=== PATIENT | female | born 1985 | race Two or more races ===

== ENCOUNTER 2018-07-04 16:18 | Inpatient (IN) | payer OTHER ==
[2016-08-24 14:25] VITALS: BMI 27.3
[2018-07-04] MEDS ORDERED: Oxytocin 30 UNIT 30 UNITS/500 ML BAG IV ONE ×2 (17:51→19:19)
[2018-07-04] MEDS ORDERED: Lactated Ringer's 1,000 ML IV SCH (18:00)
[2018-07-04 18:06] LABS: BASO % 0.1 % (0.0-2.0); EOS # 0.1 K/uL (0.0-0.7); EOS % 0.9 % (0.0-4.0); HEMOGLOBIN 10.7 g/dL (11.0-16.0); LYMPH # 2.4 K/uL (1.0-4.3); LYMPH % 16.9 % (20.0-40.0); MEAN CELL VOLUME 82.2 fL (81.0-99.0); MEAN CORPUSCULAR HEMOGLOBIN 27.8 pg (27.0-31.0); MEAN CORPUSCULAR HGB CONC 33.8 g/dL (33.0-37.0); MEAN PLATELET VOLUME 9.7 fL (7.2-11.7); MONO # 1.3 K/uL (0.0-0.8); NEUT # 10.4 K/uL (1.8-7.0); NEUT % 73.1 % (50.0-75.0); NRBC % 0.1 % (0.0-2.0); RBC 3.85 Mil/uL (3.80-5.20); RED CELL DISTRIBUTION WIDTH 14.9 % (11.5-14.5); WHITE BLOOD COUNT 14.3 K/uL (4.8-10.8)
[2018-07-04 18:14] LABS: SQUAMOUS EPITHIAL 2 /hpf (0-5); URINE BACTERIA OCC (<OCC); URINE BILIRUBIN NEGATIVE (NEGATIVE); URINE BLOOD 1+ (NEGATIVE); URINE CLARITY Clear (Clear); URINE COLOR Straw (YELLOW); URINE GLUCOSE (UA) NORMAL (Normal); URINE LEUKOCYTE ESTERASE TRACE Leu/uL (Negative); URINE PROTEIN NEGATIVE (NEGATIVE); URINE UROBILINOGEN NORMAL mg/dL (0.2-1.0)
[2018-07-04 18:22] LABS: ALB/GLOB RATIO 1.1 (1.0-2.1); ALBUMIN 3.7 g/dL (3.5-5.0); ALT/SGPT 16 U/L (9-52); AST/SGOT 17 U/L (14-36); BLOOD UREA NITROGEN 8 mg/dL (7-17); CALCIUM 9.4 mg/dl (8.6-10.4); GFR NON-AFRICAN AMERICAN > 60
[2018-07-04] MEDS ORDERED: Bupivacaine HCl/FentaNYL Cit 100 ML EPI ONE (18:43)
[2018-07-04 19:05] LABS: HEPATITIS B SURFACE AG Negative (NEGATIVE)
--- NOTE | 2018-07-04 19:44 | OBHP ---
Datetime: 07/04/2018 19:04 IP Adm Impression: Term, intrauterine ; Active labor; Intact Membranes IP Chief Complaint Other: Passed mucous plug IP Admit Plan: Admit to unit; Initiate labor augmentation protocol Admit Comment, IP Provider: This is a private patient of Dr. Leyda Thompson Patient initially seen and evaluated at approximately 1720 hours. 32 y.o. , LMP 10/12/17, ALIYAH 07/19/18, EGA 37w 6d, passed mucous plug approximately [address] Increasing strength of Ctx also 1200 hours; pain scale 4/10. (+) AFM; denies LOF, VB. c are: Dr. Thompson, as per patient, unremarkable P Ob: 2016, , male, 7 lb 4 oz, [facility]; no complications P FACTORY EXPERT: 14 x 28 x 5. Denies h/o abnormal Pap, myomata, ovarian cysts, STIs PMH: (?)thyroglossal cyst PSH: 2009, removal of thyroglossal cyst NKDA Meds: PNV - QD Soc Hx: denies tobacco, illicit drug or EtOH use. . Homemaker Fam Hx: Mother alive 60 - no med issues. Father alive 71 y.o. - DM P.E.: as above. WD in NAD. Awake, alert, oriented to time, person, place. Pleasant and cooperative Assessment: 32 y.o. , 37w 6d, in active labor. Per Dr. Thompson, GBS (-). Category 1 tracing. Cl inically stable Plan: 1) Admit 2) NPO 3) Admission labs 4) Continuous EFM 5) AROM 6) Pitocin 7) Epidural 8) Anticipate vaginal delivery - as per, and D/W, Dr. Thompson Addendum: 1800 hours - AROM performed: scant amount of clear amnionic fluid Pelvic Type - PN: Adequate Extremities - PN: Normal Abdomen - PN: Normal Back - PN: Normal Breast - PN: Not Done Lungs - PN: Normal Heart - PN: Normal Thyroid - PN: Abnormal Neurologic - PN: Normal HEENT - PN: Normal General - PN: Normal Weight - Estimated: 7 1/2 lbs Presentation-Admit: Vertex FHR - Baseline A Provider: 145 Membranes, Provider: Intact Contraction Comments Provider: 6-8 minutes Comments, ACOG Physical Exam: HEENT: healed scar on neck. no thyromegaly Abdomen: Gravid. Soft. Fundal height 38cm All other systems reviewed and are negative Gestation - Est Wks by US: 37w 6d IP Hx Assessment: record not currently available EGA AdmitDate IP: 37.6 IP Indication for Induction: Not Applicable IP Chief Complaint: Other NICHD Variability Prov Fetus A: Moderate 6-25bpm NICHD Accel Fetus A IP Provider: [id number] FHR Category Provider Fetus A: Category I NICHD Decel Fetus A IP Provider: None Dilatation, Provider: 6 Effacement, Provider: 60 Genitourinary Exam: Normal DTRs - PN: Normal
[2018-07-04] MEDS ORDERED: Oxycodone/Acetaminophen 5/325 mg Tab PO PRN ×2 (22:59)
--- NOTE | 2018-07-04 23:03 | OBDS ---
DELIVERY PERSONNEL Delivery Doctor: Guille Thompson MD Human Capital Consultant: Michell Herzog RN Anesthesiologist: Dr Cruz MATERNAL INFORMATION Delivery Anesthesia: Epidural Medications in Delivery: Pitocin 20 units IV Placenta Cultured: No Maternal Complications: None Provider Comments: pt was fully dilatd and pushing. atraumatic, spontanoeu delviery of head, no nuch al cord noted. aturmat, spontanoeu delivery of anterior followed by posteiro shoulder followd by deli verd by body. Both oral and nasal passages of raiza baby were bulb suctioned. ubmilcal cord clamed and cut. baby handed to mother on abdomen wt rn assistance. cord blood collected and sent x 2. Spotaneou delivery of intact placent with membrnae. fundus firm. second dgree perienal laceration noted adn re paired iwth 2-0 chormic. Good hemostias, no complciaiotn eb 300ml live male ifnat agpars 9,9 weight of 7lbs 3 ounces no complciaotns LABOR SUMMARY EDC: 07/19/2018 00:00 No. Babies in Womb: 1 Attempted: No Labor Anesthesia: Epidural LABOR INFORMATION Reason for Induction: Not Applicable Onset of Labor: 07/04/2018 16:00 Complete Dilatation: 07/04/2018 22:00 Oxytocin: Augmentation Group B Beta Strep: Negative Antibiotics # of Doses: 0 Antibiotics Time of Last Dose: 0 Steroids Given: None Reason Steroids Not Administered: Not Applicable MEMBRANES Membranes Rupture Method: Artificial Rupture of Membranes: 07/04/2018 18:00 Length of Rupture (hrs): 4.55 Amniotic Fluid Color: Clear Amniotic Fluid Amount: Small Amniotic Fluid Odor: Normal STAGES OF LABOR Stage 1 hrs: 6 Stage 1 min: 0 Stage 2 hrs: 0 Stage 2 min: 33 VAGINAL DELIVERY Laceration Extension: First Degree Laceration Type: Perineal Laceration Repair: Yes Initial Vag Sponge Count: 10 Final Vag Sponge Count: 10 Initial Vag Sharps Count: 1 Final Vag Sharps Count: 1 Sponge Count Correct: Yes Sharps Count Correct: Yes BABY A INFORMATION Delivery Date/Time: 07/04/2018 22:33 Method of Delivery: Vaginal SHOULDER DYSTOCIA BABY A Infant Delivery Date/Time: 07/04/2018 22:33 PRESENTATION/POSITION BABY A Presentation: Cephalic Cephalic Presentation: Vertex SCORES BABY A Heart Rate 1 min: >100 bpm Resp Effort 1 min: Good Cry Reflex Irritability 1 min: Cough or Sneeze or Pulls Away Muscle Tone 1 min: Active Motion Color 1 min: Body [place], Extremities Blue SCORE 1 MIN: 9 Heart Rate 5 min: >100 bpm Resp Effort 5 min: Good Cry Reflex Irritability 5 min: Cough or Sneeze or Pulls Away Muscle Tone 5 min: Active Motion Color 5 min: Body [place], Extremities Blue SCORE 5 MIN: 9 INFORMATION BABY A Gestational Age at Delivery: 37.0 Gestational Status: Term Infant Outcome : Liveborn Infant Condition : Stable Sex: Male IDENTIFICATION/MEDS BABY A ID Band Number: [id number] ID Band Location: Left Leg; Left Arm Sensor Applied: Yes Sensor Number: [id number] Sensor Location : Cord Clamp Vitamin K Given : Aquamephyton 1 mg IM; Left Thigh Erythromycin Given: Given Both Eyes WEIGHT/LENGTH BABY A Infant Birthweight (gms): 3260 Weight (lb): 7 Weight (oz): 3 Length Inches: 19.50 Infant Length cms: 49.5 CORD INFORMATION BABY A No. Cord Vessels: 3 Nuchal Cord : N/A Cord Blood Taken: Yes Infant Suction: None ASSESSMENT BABY A Complications: None Physical Findings at Delivery: Within Normal Limits Respirations: Appears Normal Glass Bulb Machine Adjuster/ALS Called : No Infant Care By: Genoveva Transferred To: Remains with Mother
[2018-07-05] MEDS ORDERED: Benzocaine/Menthol 20%-0.5% Topical Spray (60 ml) TOP SCH
[2018-07-05 08:11] LABS: BASO % 0.2 % (0.0-2.0); EOS % 0.3 % (0.0-4.0); HEMOGLOBIN 9.9 g/dL (11.0-16.0); LYMPH # 2.4 K/uL (1.0-4.3); LYMPH % 13.8 % (20.0-40.0); MEAN CELL VOLUME 83.1 fL (81.0-99.0); MEAN CORPUSCULAR HEMOGLOBIN 27.3 pg (27.0-31.0); MEAN CORPUSCULAR HGB CONC 32.8 g/dL (33.0-37.0); MEAN PLATELET VOLUME 11.1 fL (7.2-11.7); MONO # 1.1 K/uL (0.0-0.8); MONO % 6.6 % (0.0-10.0); NEUT # 13.6 K/uL (1.8-7.0); NEUT % 79.1 % (50.0-75.0); RBC 3.64 Mil/uL (3.80-5.20); RED CELL DISTRIBUTION WIDTH 15.1 % (11.5-14.5); WHITE BLOOD COUNT 17.2 K/uL (4.8-10.8)
[2018-07-05] MEDS: Multiple Vitamins Tab PO SCH (10:09)
[2018-07-05] MEDS ORDERED: Benzocaine/Menthol 20%-0.5% Topical Spray (60 ml) TOP PRN (18:04)
[2018-07-06 07:31] LABS: BASO % 0.2 % (0.0-2.0); EOS # 0.2 K/uL (0.0-0.7); EOS % 1.4 % (0.0-4.0); HEMOGLOBIN 9.8 g/dL (11.0-16.0); LYMPH # 2.6 K/uL (1.0-4.3); LYMPH % 19.4 % (20.0-40.0); MEAN CELL VOLUME 83.2 fL (81.0-99.0); MEAN CORPUSCULAR HEMOGLOBIN 27.2 pg (27.0-31.0); MEAN CORPUSCULAR HGB CONC 32.8 g/dL (33.0-37.0); MEAN PLATELET VOLUME 9.9 fL (7.2-11.7); MONO % 7.3 % (0.0-10.0); NEUT # 9.7 K/uL (1.8-7.0); NEUT % 71.7 % (50.0-75.0); RBC 3.6 Mil/uL (3.80-5.20); RED CELL DISTRIBUTION WIDTH 15.6 % (11.5-14.5); WHITE BLOOD COUNT 13.5 K/uL (4.8-10.8)
[2018-07-06] MEDS: Multiple Vitamins Tab PO SCH (09:16)
[2018-07-06] MEDS ORDERED: Influenza Vaccine 60 MCG/0.5 ML SYR (3 yr & up) IM ONE (11:59)
[2018-07-06] MEDS ORDERED: Measles, Mumps, and Rubella 0.5 ML VIAL SC ONE (12:08)
[2018-07-06 22:44] VITALS: BP 111/63; PULSE 91; RESP 18; TEMP 98.2; O2SAT 99
== END 2018-07-06 13:15 | disposition home or self-care (01) | DRG 807 ==
LOC: C.EROB 16:18 → C.4D 17:58 → C.4M 07-05 02:30
PROVIDERS: ADMIT Obstetrics & Gynecology; ATTEND Obstetrics & Gynecology
PROC: 10E0XZZ Delivery of Products of Conception, External Approach (ICD-10-PCS; principal; 2018-07-04)
PROC: 0HQ9XZZ Repair Perineum Skin, External Approach (ICD-10-PCS; 2018-07-04)
PROC: 10907ZC Drainage of Amniotic Fluid, Therapeutic from Products of Conception, Via Natural or Artificial Opening (ICD-10-PCS; 2018-07-04)
DX: O70.0 First degree perineal laceration during delivery (principal); Z37.0 Single live birth; Z3A.37 37 weeks gestation of pregnancy; Z83.3 Family history of diabetes mellitus